=== PATIENT | female | born 1960 | race Caucasian/White ===

== ENCOUNTER 2024-12-15 15:28 | Emergency (ER) | payer MEDICARE, OTHER ==
[~2024-12-15] VITALS: Ht 177.8 cm; Wt 68.9 kg
[2024-12-15] MEDS ORDERED: METRONIDAZOLE 500 MG TABLET ONE (16:17)
[2024-12-15] MEDS: METRONIDAZOLE 500 MG TABLET PO ONE (16:21)
[2024-12-15] MEDS ORDERED: OXYC5TAB3 PO (16:36)
[2024-12-15] MEDS ORDERED: METR500T PO (16:36)
[2024-12-15 16:49] VITALS: BP 132/81; O2SAT 98
== END 2024-12-15 16:49 | disposition home or self-care (01) ==
LOC: ER 15:28
DX: K04.7 Periapical abscess without sinus (principal); E78.00 Pure hypercholesterolemia, unspecified; M54.2 Cervicalgia; Z88.0 Allergy status to penicillin
CPT/HCPCS: A4606; A4663